=== PATIENT | female | born 1990 | race Caucasian/White ===

== ENCOUNTER 2017-02-06 08:36 | Emergency (ER) | payer OTHER ==
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
[2017-02-06] MEDS ORDERED: DEXAMETHASONE SOD PHOS INJ 10 MG/1 ML VIAL IM ONE (10:00)
[2017-02-06] MEDS ORDERED: IBUPROFEN 600 MG TABLET PO ONE (10:00)
[2017-02-06 11:32] VITALS: BP 136/93
== END 2017-02-06 11:10 | disposition home or self-care (01) ==
LOC: ER 08:36
DX: S49.92XA Unspecified injury of left shoulder and upper arm, initial encounter (principal); S16.1XXA Strain of muscle, fascia and tendon at neck level, initial encounter; M79.1 Myalgia; F17.210 Nicotine dependence, cigarettes, uncomplicated; V43.52XA Car driver injured in collision with other type car in traffic accident, initial encounter; Y92.410 Unspecified street and highway as the place of occurrence of the external cause
CPT/HCPCS: 99284; 96372; 73030; 72125; J1100